=== PATIENT | female | born 1965 | race Caucasian/White ===

== ENCOUNTER 2020-10-07 07:18 | Observation (INO) ==
[2020-10-07] MEDS ORDERED: Ketorolac 15 MG/ML VIAL IVP ONE (07:37)
[2020-10-07] MEDS ORDERED: *HR* FentaNYL (PF) 100 MCG/2 ML VIAL IVP ONE (07:53)
[2020-10-07 08:09] LABS: Basophils # 0.1 K/mcL (0.0-0.2); Basophils % 0.5 %; Eosinophils # 0.4 K/mcL (0.0-0.6); Eosinophils % 2.4 %; Hematocrit 43.5 % (35.3-44.9); Hemoglobin 13.7 g/dL (11.5-15.4); Immature Granulocytes % 0.3 % (0-4); Lymphocytes # 2.2 K/mcL (0.6-4.6); Lymphocytes % 14.4 %; Mean Corpuscular HGB Conc 31.5 g/dL (31.6-35.5); Mean Corpuscular Hemoglobin 30.1 pg (28.0-33.3); Mean Corpuscular Volume 95.6 fL (83.0-100.0); Mean Platelet Volume 10.1 fL (9.4-12.4); Monocytes # 0.9 K/mcL (0.0-1.3); Monocytes % 6.1 %; Neutrophils # 11.6 K/mcL (1.6-8.9); Platelet Count 265 K/mcL (140-400); Red Blood Count 4.55 M/mcL (3.82-4.97); Segmented Neutrophils % 76.3 %; White Blood Count 15.2 K/mcL (4.3-11.1)
[2020-10-07 08:26] LABS: BUN/Creatinine Ratio 14 (6-26); Blood Urea Nitrogen 13 mg/dL (6-20); Calcium 9.5 mg/dL (8.6-10.3); Carbon Dioxide 27 mEq/L (23-29); Chloride 101 mEq/L (98-107); Glucose 148 mg/dL (70-105); Osmolality,Calculated 285 (280-300); Sodium 136 mEq/L (136-145); eGFR For African Americans > 60 (> 60); eGFR For Non-African Americans > 60 (> 60)
[2020-10-07] MEDS: Aspirin 81 MG TAB.CHEW PO SCH (08:47)
[2020-10-07 09:21] LABS: Bilirubin,Urine Negative (Negative); Blood,Urine Negative (Negative); Clarity,Urine Turbid (Clear); Color,Urine Yellow (Yellow); Glucose,Urine (UA) Normal (Normal); Hyaline Casts,Urine Few per lpf (None Seen); Ketones,Urine Negative (Negative); Leukocyte Esterase,Urine Trace (Negative); Mucus,Urine Many per lpf (None-Few); Nitrite,Urine Negative (Negative); PH,Urine 5.5 pH Units (5.0-8.0); Protein,Urine Trace mg/dL (Neg-Trace); RBC,Urine 0-3 per hpf (0-3); Specific Gravity,Urine 1.022 (1.010-1.025); Squamous Epithelial Cell,Urine Few per hpf (None-Few); Urobilinogen,Urine Normal (Normal); WBC,Urine 0-3 per hpf (0-3)
[2020-10-07] MEDS ORDERED: Dextrose Gel 15 GM/37.5 ML TUBE PO PRN ×2 (11:01)
[2020-10-07] MEDS ORDERED: Naloxone 0.4 MG/ML INJ IVP PRN (11:01)
[2020-10-07] MEDS ORDERED: D5% in Water 1,000 ML IVC PRN (11:01)
[2020-10-07] MEDS ORDERED: *HR* Dextrose 50 % in Water (Vial) 50 ML VIAL IVP PRN (11:01)
[2020-10-07] MEDS ORDERED: Ondansetron 4 MG/2 ML VIAL IVP PRN (11:01)
[2020-10-07] MEDS ORDERED: Perflutren Lipid Microsphere 1.3 ML in 0.9 % Sodium Chloride 8.7 ML IVP PRN (11:06)
[2020-10-07] MEDS ORDERED: *HR* OxyCODONE Immed Rel 5 MG TABLET PO PRN (11:23)
[2020-10-07] MEDS: BuPROPion XL (24 HR) 150 MG TABLET PO SCH (11:53)
[2020-10-07] MEDS: Pregabalin 75 MG CAPSULE PO SCH ×2 (11:54→20:21)
[2020-10-07] MEDS: Insulin LISPRO 300 UNITS/3 ML VIAL SUBQ SCH ×2 (12:03→16:47)
[2020-10-07] MEDS: Acetaminophen 325 MG TABLET PO PRN ×2 (15:01→21:01)
[2020-10-07] MEDS: *HR* Heparin 5,000 UNIT/ML VIAL SQ SCH (17:26)
[2020-10-07] MEDS: Nitroglycerin 0.4 MG TAB.SUBL SL PRN ×2 (21:15→21:30)
[2020-10-07] MEDS ORDERED: Isovue-370 500 ML BOTTLE IVP ONE (21:47)
[2020-10-07] MEDS ORDERED: Morphine Sulfate 2 MG/ML SYRINGE IVP ONE (21:47)
[2020-10-07] MEDS ORDERED: *HR* LORazepam 2 MG/ML VIAL IVP PRN (23:18)
[2020-10-08] MEDS ORDERED: traZODone 50 MG TABLET PO SCH (02:15)
[2020-10-08 05:50] LABS: Basophils # 0.1 K/mcL (0.0-0.2); Basophils % 0.5 %; Eosinophils # 0.1 K/mcL (0.0-0.6); Hematocrit 38.2 % (35.3-44.9); Hemoglobin 12.3 g/dL (11.5-15.4); Immature Granulocytes % 0.3 % (0-4); Lymphocytes # 2.8 K/mcL (0.6-4.6); Lymphocytes % 28.2 %; Mean Corpuscular HGB Conc 32.2 g/dL (31.6-35.5); Mean Corpuscular Hemoglobin 30.6 pg (28.0-33.3); Mean Platelet Volume 10.1 fL (9.4-12.4); Monocytes # 1.1 K/mcL (0.0-1.3); Monocytes % 11.1 %; Neutrophils # 5.8 K/mcL (1.6-8.9); Platelet Count 216 K/mcL (140-400); Red Blood Count 4.02 M/mcL (3.82-4.97); Red Cell Distribution Width 13.2 % (11.5-14.5); Segmented Neutrophils % 58.9 %; White Blood Count 9.9 K/mcL (4.3-11.1)
[2020-10-08] MEDS: *HR* Heparin 5,000 UNIT/ML VIAL SQ SCH (05:56)
[2020-10-08 05:57] LABS: Estimated Average Glucose 131 mg/dl; Hemoglobin A1C 6.2 %
[2020-10-08 06:13] LABS: BUN/Creatinine Ratio 14 (6-26); Blood Urea Nitrogen 12 mg/dL (6-20); Calcium 9.2 mg/dL (8.6-10.3); Carbon Dioxide 25 mEq/L (23-29); Chloride 105 mEq/L (98-107); Cholesterol 221 mg/dL (< 200); Glucose 117 mg/dL (70-105); HDL Cholesterol 37 mg/dL (40-59); LDL Cholesterol,Calculated 147 mg/dL (< 100); Osmolality,Calculated 285 (280-300); Sodium 137 mEq/L (136-145); Triglycerides 183 mg/dL (< 150); eGFR For African Americans > 60 (> 60); eGFR For Non-African Americans > 60 (> 60)
[2020-10-08] MEDS ORDERED: Regadenoson 0.4 MG/5 ML SYRINGE IVP ONE (06:49)
[2020-10-08] MEDS: Insulin LISPRO 300 UNITS/3 ML VIAL SUBQ SCH ×2 (08:43→12:03)
[2020-10-08] MEDS: Pregabalin 75 MG CAPSULE PO SCH (08:43)
[2020-10-08] MEDS: BuPROPion XL (24 HR) 150 MG TABLET PO SCH (08:43)
[2020-10-08] MEDS: Aspirin 81 MG TAB.CHEW PO SCH (08:43)
[2020-10-08 08:44] VITALS: BP 104/68
[2020-10-08] MEDS ORDERED: Famotidine 20 MG TABLET PO SCH (09:00)
[2020-10-08] MEDS ORDERED: NON-FORMULARY MEDICATION 1 EACH EACH (Trazodone Hcl 100 MG) PO SCH (21:00)
== END 2020-10-08 13:20 | disposition home or self-care (01) ==
LOC: 3BNU 07:18 → EMEROOARM 07:18 → SUATTDRO 10:04 → 3BNU 10:59
PROVIDERS: ADMIT Internal Medicine; ATTEND Internal Medicine